=== PATIENT | female | born 1995 | race Caucasian/White ===

== ENCOUNTER 2017-12-13 19:44 | Emergency (ER) | payer OTHER ==
[~2017-12-13] VITALS: Ht 154.9 cm; Wt 68.9 kg
[2017-12-13] MEDS ORDERED: PRENATABS FA T1 EACH (19:57)
[2017-12-19] MEDS ORDERED: FOLIC ACID0.4 MG (13:36)
== END 2017-12-13 23:53 ==
LOC: ER 19:44
DX: O20.0 Threatened abortion (principal); Z34.01 Encounter for supervision of normal first pregnancy, first trimester

== ENCOUNTER 2017-12-15 19:41 | Emergency (ER) | payer OTHER ==
[~2017-12-15] VITALS: Ht 157.5 cm; Wt 68.0 kg
[~2017-12-15 19:41] MED LIST: PRENATABS FA T1 EACH
[2017-12-19] MEDS ORDERED: FOLIC ACID0.4 MG (13:36)
== END 2017-12-16 04:20 ==
LOC: ER 19:41
DX: O46.8X2 Other antepartum hemorrhage, second trimester (principal); O20.0 Threatened abortion; Z34.01 Encounter for supervision of normal first pregnancy, first trimester

== ENCOUNTER → 2017-12-17 | Emergency (ER) | payer OTHER ==
[~2017-12-17] VITALS: Ht 154.9 cm; Wt 68.0 kg
[~2017-12-17] MED LIST changes: +FOLIC ACID0.4 MG
== END | disposition home or self-care (01) ==
LOC: ER 21:55
DX: O02.1 Missed abortion (principal); Z34.81 Encounter for supervision of other normal pregnancy, first trimester

== ENCOUNTER → 2017-12-19 | Day surgery (SDC) | payer OTHER ==
[~2017-12-19] VITALS: Ht 154.9 cm; Wt 68.0 kg
== END | disposition home or self-care (01) ==
LOC: ER 13:25 → CIR.AMB 16:42
DX: O03.4 Incomplete spontaneous abortion without complication (principal)

== ENCOUNTER 2022-10-04 14:08 | Outpatient (CLI) | payer OTHER | END 2022-10-04 17:00 | disposition home or self-care (01) | LOC: PRENATAL 14:08 | PROVIDERS: ATTEND Obstetrics & Gynecology Maternal & Fetal Medicine | DX: O36.80X0 Pregnancy with inconclusive fetal viability, not applicable or unspecified (principal); Z14.8 Genetic carrier of other disease; Z3A.12 12 weeks gestation of pregnancy ==

== ENCOUNTER → 2022-12-01 13:19 | Outpatient (CLI) | payer OTHER | END | disposition home or self-care (01) | LOC: PRENATAL 13:19 | PROVIDERS: ATTEND Obstetrics & Gynecology Maternal & Fetal Medicine | DX: O35.3XX0 Maternal care for (suspected) damage to fetus from viral disease in mother, not applicable or unspecified (principal); O34.219 Maternal care for unspecified type scar from previous cesarean delivery; O44.00 Complete placenta previa NOS or without hemorrhage, unspecified trimester; Z3A.20 20 weeks gestation of pregnancy ==

== ENCOUNTER 2023-01-24 15:11 | Outpatient (CLI) | payer OTHER | END 2023-01-24 15:12 | disposition home or self-care (01) | LOC: PRENATAL 15:11 | PROVIDERS: ATTEND Obstetrics & Gynecology Maternal & Fetal Medicine | DX: O26.849 Uterine size-date discrepancy, unspecified trimester (principal); O44.00 Complete placenta previa NOS or without hemorrhage, unspecified trimester; Z3A.28 28 weeks gestation of pregnancy ==

== ENCOUNTER 2023-03-09 09:38 | Outpatient (CLI) | payer OTHER | END 2023-03-09 09:39 | disposition home or self-care (01) | LOC: PRENATAL 09:38 | PROVIDERS: ATTEND Obstetrics & Gynecology Maternal & Fetal Medicine | DX: O26.849 Uterine size-date discrepancy, unspecified trimester (principal); O36.8199 Decreased fetal movements, unspecified trimester, other fetus; Z3A.34 34 weeks gestation of pregnancy ==